=== PATIENT | female | born 1975 | race Two or more races ===

== ENCOUNTER 2017-05-02 18:55 | Emergency (ER) | payer OTHER ==
[~2017-05-02] VITALS: Ht 160 cm; Wt 77.3 kg
[2017-05-02] MEDS ORDERED: CELE40TA PO (19:17)
[2017-05-02] MEDS ORDERED: GABA-283 PO (19:17)
[2017-05-02] MEDS ORDERED: HYDROmorphone HCL 1 MG/ML SYRINGE (J1170) IM ONE (20:30)
[2017-05-02] MEDS ORDERED: TRAM50TA2 PO (20:31)
[2017-05-02 21:07] VITALS: BP 133/78
== END 2017-05-02 21:08 | disposition home or self-care (01) ==
LOC: M ED 18:55
DX: M62.830 Muscle spasm of back (principal); F41.9 Anxiety disorder, unspecified; G89.29 Other chronic pain; M54.2 Cervicalgia; M25.519 Pain in unspecified shoulder; F17.210 Nicotine dependence, cigarettes, uncomplicated; Z79.899 Other long term (current) drug therapy
CPT/HCPCS: 96372; 99282; J1170

== ENCOUNTER → 2017-05-25 | Outpatient (CLI) | payer OTHER ==
[~2017-05-25] MED LIST: CELE40TA PO; GABA-283 PO; TRAM50TA2 PO
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
== END | disposition home or self-care (01) ==
LOC: M PAIN 14:15
PROVIDERS: ATTEND Nurse Practitioner Family
DX: G89.29 Other chronic pain (principal); M12.88 Other specific arthropathies, not elsewhere classified, other specified site; M79.1 Myalgia; M54.2 Cervicalgia; F41.9 Anxiety disorder, unspecified; Z79.899 Other long term (current) drug therapy; Z91.040 Latex allergy status; F17.210 Nicotine dependence, cigarettes, uncomplicated

== ENCOUNTER → 2017-06-09 | Outpatient (CLI) | payer OTHER ==
--- NOTE | 2017-06-09 19:32 | REP ---
MR CERVICAL SPINE WITHOUT CONTRAST: HISTORY: Neck pain. A disc bulge is present at the C3-4 level. There is mild effacement of the thecal sac without spinal cord compression. Uncinate process hypertrophy is present on the right. This produces mild narrowing of the right C3 neural foramen. The left C3 neural foramina is parent. A disc bulge is present at the C4-5 level. There is moderate effacement of the thecal sac without spinal cord compression. Uncinate process hypertrophy is present on the right. This produces moderate narrowing of the right C4 neural foramen. The left C4 neural foramina is patent. A disc bulge with associated osteophyte formation is present at the C5-6 level. There is moderate effacement of the thecal sac without spinal cord compression. Bilateral uncinate process hypertrophy is present. This produces moderate and mild narrowing of the right and left C5 neural foramina respectively. A disc bulge and small central disc protrusion are present at the C6-7 level. There is minimal effacement of the thecal sac without spinal cord compression. The C6 neural foramina are patent. There is no other disc bulge or herniation. The remaining neural foramina are patent. The spinal cord is normal in signal intensity. The C4-5 and C5-6 intervertebral discs are decreased in height consistent with disc degeneration. Normal signal intensity is present in the cervical vertebral bodies. There is loss of the normal lordotic curve. IMPRESSION: There is cervical spondylosis at the C3-4 through C6-7 levels without spinal cord compression. Signed by Paolo Morataya MD 06/09/2017 07:41 P
== END ==
LOC: M RAD 17:29
PROVIDERS: ATTEND Nurse Practitioner Family
DX: M12.88 Other specific arthropathies, not elsewhere classified, other specified site (principal)

== ENCOUNTER → 2017-06-29 | Outpatient (CLI) | payer OTHER ==
--- NOTE | 2017-07-15 00:55 | ECWPNPC ---
PATIENT NAME: CAROLEE DAWN : 1975 GENDER: FEMALE VISIT DATE: 06/29/2017 DISCHARGE DATE: 06/29/17 1624 VISIT LOCKED DATE TIME: PHYSICIAN: LISSET DIAZ RESOURCE: LISEST DIAZ REASON FOR APPOINTMENT 1. NECK PAIN HISTORY OF PRESENT ILLNESS HISTORY OF PRESENT ILLNESS: PAIN THE PATIENT DESCRIBES THE PAIN... 42 YEAR OLD FEMALE PATIENT WITH HISTORY OF CHRONIC NECK PAIN. PATIENT DESCRIBES THE PAIN ACHING, BURNING, SHARP, STABBING, TENDER, THROBBING, SORE, SHOOTING AND HAVING IT ALL THE TIME WITH A PAIN SCORE OF 7/10. PATIENT REPORTS HURTING HER NECK 4-5 YEARS AGO AND HAD RECEIVED A RADIOFREQUENCY IN DECEMBER OF 2015 AND WAS DOING WELL UNTIL SHE MOVED IN MARCH 2017 AND THE PAIN RETURNED. AT THIS TIME THE PATIENT IS USING MELOXICAM TO AID IN PAIN RELIEF FROM THE MUSCLE SPASMS. PATIENT STATES THE PAIN IS THE WORST WHEN SHE SITS IN ONE POSITION FOR TOO LONG. PATIENT DENIES UNEXPLAINABLE WEIGHT LOSS, FEVER, CHILLS, NEW CHANGES ON HER URINARY OR BOWEL CONTROL. FALL RISK SCREENING: SCREENING :NO FALLS IN THE PAST YEAR CURRENT MEDICATIONS TAKING CELEXA 40 MG TABLET 0.5 TABLET ORALLY ONCE A DAY TAKING MELOXICAM 15 MG TABLET 1 TABLET ORALLY ONCE A DAY NOT-TAKING CYCLOBENZAPRINE HCL 5 MG TABLET 1 TABLET NEEDED ORALLY THREE TIMES A DAY MEDICATION LIST REVIEWED AND RECONCILED WITH THE PATIENT PAST MEDICAL HISTORY CERVICALAGIA ANXIETY ALLERGIES LATEX: RASH: ALLERGY REVIEW OF SYSTEMS REVIEWED BY: PROVIDER: LISSET DIAZ MD . CONSTITUTIONAL: ANY CHANGE IN YOUR MEDICAL CONDITION? NO . CHILLS NO . FEVER NO . INFECTION: DO YOU HAVE NEW INFECTIONS? NO . DO YOU HAVE HISTORY OF MRSA? NO . MUSCULOSKELETAL: ANY NEW PATTERNS OF PAIN OR NUMBNESS? NO . GASTROENTEROLOGY: ANY NEW CHANGE IN BOWEL CONTROL? NO . GENITOURINARY: ANY NEW CHANGE IN BLADDER CONTROL? NO . IS THERE A CHANCE YOU COULD BE ? NO . HEMATOLOGY/LYMPH: DO YOU TAKE ANY BLOOD THINNERS? (FOR EXAMPLE- COUMADIN, PLAVIX, AGGRENOX, PLATEL, PRADAXA, OR XARELTO) NO . WHEN WAS YOUR LAST DOSE? DATE: TIME: . NEUROLOGY: HAVE YOU FALLEN IN THE PAST 6 MONTHS? NO . ANY NEW EXTREMITY NUMBNESS OR WEAKNESS? NO . CARDIOLOGY: DO YOU HAVE A PACEMAKER OR DEFIBRILLATOR? NO . RESPIRATORY: HAVE YOU BEEN SICK IN THE PAST WEEK? NO . FEVER NO . FLU LIKE SYMPTOMS? NO . COUGH NO . INTEGUMENTARY: DO YOU HAVE ANY RASHES OR OPEN SORES? NO . ALLERGIC/IMMUNO: ARE YOU ALLERGIC TO SHELLFISH OR IV DYE? NO . ANY NEW ALLERGIES? NO . PSYCHIATRIC: DO YOU HAVE THOUGHTS OF HURTING YOURSELF OR SOMEONE ELSE? NO . ARE YOU ABUSED, NEGLECTED, OR IN AN UNSAFE ENVIRONMENT? NO . ENDOCRINOLOGY: ARE YOU DIABETIC? NO . OTHER: DO YOU NEED ANY PRESCRIPTIONS? NO . IF YES, PLEASE LIST: ____ . ANY NEW PROBLEMS WITH YOUR MEDICATIONS? NO . WHEN DID YOU LAST EAT? ____ . WHEN DID YOU LAST DRINK? ____ . WHAT DID YOU LAST DRINK? ____ . NAME OF PERSON DRIVING YOU HOME? ____ . DO YOU HAVE ANY OTHER QUESTIONS OR CONCERNS YES PT WOULD LIKE TO DISCUSS POSSIBLITY OF INJECTIONS, SHE HAS HAD THEM BEFORE WITH [facility], THE LAST ONE BEING A CERVICAL RADIOFREQUENCY DONE IN [place] 12/2015. SHE WOULD ALSO LIKE TO DISCUSS STARTING GABAPENTIN AND MOBIC FOR PAIN CONTROL. . EXAMINATION : PATIENT IS ALERT O X 3 AND COOPERATIVE. TENDERNESS IN THE RIGHT CERVICAL AREA. BANDS OF TISSUE, RESTRICTION OF MOVEMENT, AND PRESENCE OF TRIGGER POINTS IN THE CERVICAL AREA. MRI OF THE CERVICAL SPINE DONE ON 01/16/17 SHOWS DEGENERATIVE DISC DISEASE AND SPONDYLOSIS AT C4-C5. ASSESSMENTS MYALGIA - M79.1 (PRIMARY) NECK PAIN - M54.2 SPONDYLOSIS OF LUMBAR REGION WITHOUT MYELOPATHY OR RADICULOPATHY - M47.816 TREATMENT MYALGIA NOTES: WE DISCUSSED SEVERAL ISSUES WITH MRS. DAWN'S PAIN MANAGEMENT CASE. AT THIS TIME THE PATIENT WILL CONTINUE TO USE MELOXICAM FOR THE MUSCLE SPASMS. I WOULD LIEK THE PATIENT TO START GABAPENTIN TO AID IN RELIEF FROM THE NEUROPATHIC PAIN. PATIENT WAS ADVISED TO STOP THE MEDICATION IF SHE HAS ANY ADVERSE SIDE EFFECTS. WE DISCUSSED SEVERAL INJECTIONS THAT MAY AID THE PATIENT IN PAIN RELIEF. AT THIS TIME THE PATIENT WOULD LIKE TO PROCEED WITH THE LEAST INVASIVE INJECTION BEING THE TRIGGER POINT INJECTION. DUE TO THE BANDS OF TISSUE I WOULD LIKE TO PROCEED WITH TRIGGER POINT INJECTIONS. WE DISCUSSED THE RISKS, BENEFITS, AND ALTNERATIVES OF THE INJECTION AND THE PATIENT WOULD LIKE TO PROCEED AT THIS. INSTRUCTIONS WERE GIVEN, QUESTIONS WERE ANSWERED, PATIENT REPORTS UNDERSTANDING AND AGREES WITH THE PLAN. I, SALVADOR NEAL, DOCUMENTED THE ABOVE INFORMATION ACTING A SCRIBE FOR DR. DIAZ. I HAVE REVIEWED THE ABOVE DOCUMENT, WRITTEN BY SALVADOR JUSTIN AND I VERIFY THAT IT IS ACCURATE. OTHERS REFILL MELOXICAM TABLET, 15 MG, 1 TABLET WITH FOOD, ORALLY PRN FOR PAIN, ONCE A DAY, 30 DAY(S), 30 TABLET, REFILLS 1 START GABAPENTIN TABLET, 800 MG, 1 TABLET, ORALLY FOR PAIN, BID FOR PAIN MDD2, 30 DAY(S), 60, REFILLS 1 PROCEDURE CODES FA211 ESTABILISHED PATIENT [facility] FACILITY CHARGE G8427 DOC MEDS VERIFIED W/PT OR RE G8730 PAIN ASSESS POS TOOL F/U PLAN DOC DISPOSITION & COMMUNICATION FOLLOW UP TPI AFTER APPROVAL ELECTRONICALLY SIGNED BY LISSET DIAZ MD ON 07/14/2017 AT 02:25 PM EST DISCLAIMER : THIS IS A VISIT SUMMARY EXTRACTED FROM THE [employer] CHART. IT IS NOT A COPY OF THE [employer] PROGRESS NOTE. MARTINE
== END ==
LOC: M PAIN 15:30
PROVIDERS: ATTEND Anesthesiology
DX: M79.1 Myalgia (principal); M54.2 Cervicalgia; M47.816 Spondylosis without myelopathy or radiculopathy, lumbar region; G89.29 Other chronic pain; Z79.899 Other long term (current) drug therapy; Z91.040 Latex allergy status

== ENCOUNTER → 2017-07-14 | Outpatient (CLI) | payer OTHER ==
--- NOTE | 2017-07-29 01:32 | ECWPNPC ---
PATIENT NAME: CAROLEE DAWN : 1975 GENDER: FEMALE VISIT DATE: 07/14/2017 DISCHARGE DATE: 07/14/17 1415 VISIT LOCKED DATE TIME: PHYSICIAN: SUZAN DRISCOLL RESOURCE: SUZAN DRISCOLL REASON FOR APPOINTMENT 1. NECK HISTORY OF PRESENT ILLNESS HISTORY OF PRESENT ILLNESS: PAIN THE PATIENT DESCRIBES THE PAIN... FALL RISK SCREENING: SCREENING :NO FALLS IN THE PAST YEAR TODAY'S VISIT: NOTES: REPORT NINFA IS NOT WORKING BEFORE. HAS BEEN ON MED X > 4 YEARS WITH AT CURRENT DOSE AT OVER 1 YEAR. PAIN IS CENTERED AT BASE OF NECK WITH RADIATES OVER HEAD AND HAS ASSOC TURNER. . HAS BEEN HAVING DISRUPTED SLEEP. . CURRENT MEDICATIONS TAKING CELEXA 40 MG TABLET 0.5 TABLET ORALLY ONCE A DAY TAKING MELOXICAM 15 MG TABLET 1 TABLET WITH FOOD ORALLY PRN FOR PAIN ONCE A DAY TAKING GABAPENTIN 800 MG TABLET 1 TABLET ORALLY FOR PAIN BID FOR PAIN MDD2 NOT-TAKING CYCLOBENZAPRINE HCL 5 MG TABLET 1 TABLET NEEDED ORALLY THREE TIMES A DAY MEDICATION LIST REVIEWED AND RECONCILED WITH THE PATIENT PAST MEDICAL HISTORY CERVICALAGIA ANXIETY ALLERGIES LATEX: RASH: ALLERGY SURGICAL HISTORY X 2 1996, 2009 SOCIAL HISTORY GENERAL: TOBACCO USE ARE YOU A:CURRENT SMOKER 1 PPD X 20 YEARS ARE YOU INTERESTED IN QUITTING?THINKING ABOUT QUITTING PREVIOUS QUIT ATTEMPTS?YES, WITHIN THE LAST 6 MONTHS. COUNSELED THE PATIENT ON SMOKING CESSATION, EDUCATION [id number]/25/2017 PATIENT COUNSELED ON THE DANGERS OF TOBACCO USE AND URGED TO QUIT:05/25/2017 PLANNING TO QUIT SMOKING SOON/ WILL BE TAKING CHANTEX TO DO THIS RECREATIONAL DRUG USE DRUG USE?NO CAFFEINE CAFFEINE USE?NO 6 CUPS COFFEE/DAY DIET: REGULAR. MARITAL STATUS: . OTHERS AT HOME: SPOUSE, CHILD. SIKH [id number] PRESYBETERIAN LANGUAGE LANGUAGES SPOKEN:BENGALI LEARNING BARRIERS / SPECIAL NEEDS BARRIERS TO LEARNING?NO PAIN CLINIC PFS, CLERGY, PUBLIC HEALTH REFERRALS HAS THE PATIENT BEEN EDUCATED REGARDING HIS/HER PLAN OF CARE?YES HAS THE PATIENT BEEN EDUCATED REGARDING PAIN, THE RISK FOR PAIN, THE IMPORTANCE OF EFFECTIVE PAIN MANAGEMENT, AND THE PAIN ASSESSMENT PROCESS?YES ADVANCE DIRECTIVES HEALTH CARE PROXY?NO WOULD YOU LIKE MORE INFORMATION?NO DO YOU HAVE A DNR?NO WOULD YOU LIKE MORE INFORMATION?NO LIVING WILL?NO WOULD YOU LIKE MORE INFORMATION?NO POWER OF FAMILY AND CONSUMER SCIENCES PROFESSOR?NO WOULD YOU LIKE MORE INFORMATION?NO TRAVEL OUTSIDE US: NONE RECENT. REVIEW OF SYSTEMS REVIEWED BY: PROVIDER: . CONSTITUTIONAL: ANY CHANGE IN YOUR MEDICAL CONDITION? GABAPENTIN TAKES SO LONG TO START WORKING WONDERS IF SHE COULD SWITCH TO LYRICA . CHILLS NO . FEVER NO . INFECTION: DO YOU HAVE NEW INFECTIONS? NO . DO YOU HAVE HISTORY OF MRSA? NO . MUSCULOSKELETAL: ANY NEW PATTERNS OF PAIN OR NUMBNESS? NO . GASTROENTEROLOGY: ANY NEW CHANGE IN BOWEL CONTROL? NO . GENITOURINARY: ANY NEW CHANGE IN BLADDER CONTROL? NO . IS THERE A CHANCE YOU COULD BE ? NO . HEMATOLOGY/LYMPH: DO YOU TAKE ANY BLOOD THINNERS? (FOR EXAMPLE- COUMADIN, PLAVIX, AGGRENOX, PLATEL, PRADAXA, OR XARELTO) NO . WHEN WAS YOUR LAST DOSE? DATE: TIME: . NEUROLOGY: HAVE YOU FALLEN IN THE PAST 6 MONTHS? NO . ANY NEW EXTREMITY NUMBNESS OR WEAKNESS? NO . CARDIOLOGY: DO YOU HAVE A PACEMAKER OR DEFIBRILLATOR? NO . RESPIRATORY: HAVE YOU BEEN SICK IN THE PAST WEEK? NO . FEVER NO . FLU LIKE SYMPTOMS? NO . COUGH NO . INTEGUMENTARY: DO YOU HAVE ANY RASHES OR OPEN SORES? NO . ALLERGIC/IMMUNO: ARE YOU ALLERGIC TO SHELLFISH OR IV DYE? NO . ANY NEW ALLERGIES? NO . PSYCHIATRIC: DO YOU HAVE THOUGHTS OF HURTING YOURSELF OR SOMEONE ELSE? NO . ARE YOU ABUSED, NEGLECTED, OR IN AN UNSAFE ENVIRONMENT? NO . ENDOCRINOLOGY: ARE YOU DIABETIC? NO . OTHER: DO YOU NEED ANY PRESCRIPTIONS? YES . IF YES, PLEASE LIST: COULD SHE HAVE LYRICA INSTEAD OF GABAPENTIN . ANY NEW PROBLEMS WITH YOUR MEDICATIONS? NO . WHEN DID YOU LAST EAT? ____ . WHEN DID YOU LAST DRINK? ____ . WHAT DID YOU LAST DRINK? ____ . NAME OF PERSON DRIVING YOU HOME? ____ . DO YOU HAVE ANY OTHER QUESTIONS OR CONCERNS NO . VITAL SIGNS WT 170.0 LBS, HT 63 IN, BMI 30.11 INDEX, BP 118/64 MM HG, HR 83 /MIN, RR 16 /MIN, TEMP 97.9 F, OXYGEN SAT % 98%, NA INITIALS TL 1311, REVIEWED BY: NL. ASSESSMENTS MYALGIA - M79.1 (PRIMARY) NECK PAIN - M54.2 SPONDYLOSIS OF LUMBAR REGION WITHOUT MYELOPATHY OR RADICULOPATHY - M47.816 TREATMENT MYALGIA START LYRICA CAPSULE, 100 MG, 1 CAPSULE, ORALLY, TWICE A DAY MDD=2, 30 DAY(S), 60, REFILLS 1 START TRAMADOL HCL TABLET, 50 MG, 1 TABLET NEEDED, ORALLY, Q 6-8 HRS PRN PAIN MDD=3, 30 DAY(S), 75, REFILLS 0 NOTES: WHEN LYRICA IS APPROVED DECREASE GABAPENTIN TO 1/2 TABLET TWICE A DAY FOR 3 DAYS AND THEN STOP. PROCEDURE CODES FA211 ESTABILISHED PATIENT [facility] CHARGE DISPOSITION & COMMUNICATION FOLLOW UP KEEP SCHEDULED APPOINT FOR INJECTION/FOLLOWUP AFTER (REASON: NECK PAIN) ELECTRONICALLY SIGNED BY DANIELLE CONNOR ON 07/28/2017 AT 08:51 AM EST DISCLAIMER : THIS IS A VISIT SUMMARY EXTRACTED FROM THE [employer] CHART. IT IS NOT A COPY OF THE [employer] PROGRESS NOTE. MTDDelmi
== END | disposition home or self-care (01) ==
LOC: M PAIN 14:45
PROVIDERS: ATTEND Nurse Practitioner Family
DX: G89.29 Other chronic pain (principal); M79.1 Myalgia; M54.2 Cervicalgia; M47.816 Spondylosis without myelopathy or radiculopathy, lumbar region; Z79.899 Other long term (current) drug therapy; Z91.040 Latex allergy status; F17.210 Nicotine dependence, cigarettes, uncomplicated

== ENCOUNTER → 2017-09-01 | Outpatient (CLI) | payer OTHER ==
[~2017-09-01] MED LIST changes: +BUPIVACAINE HCL 0.25% 10 ML VIAL As Ordered; +BUPIVACAINE HCL 0.25% 30 ML VIAL As Ordered; -CELE40TA PO; -GABA-283 PO; -TRAM50TA2 PO; +TRIAMCINOLONE ACETONIDE SUSP 40 MG/ML VIAL (J3301) As Ordered; +diazePAM 5 MG TAB As Ordered; +oxyCODONE 5MG TAB As Ordered
== END ==
LOC: M PAIN 15:00
DX: G89.29 Other chronic pain (principal); M54.2 Cervicalgia; M25.511 Pain in right shoulder; M79.1 Myalgia; F41.9 Anxiety disorder, unspecified; F17.200 Nicotine dependence, unspecified, uncomplicated; Z91.040 Latex allergy status; Z79.899 Other long term (current) drug therapy
CPT/HCPCS: J3301

== ENCOUNTER → 2017-09-17 | Outpatient (CLI) | payer OTHER | LOC: M PAIN 14:30 | DX: G89.29 Other chronic pain (principal); M79.1 Myalgia; M54.2 Cervicalgia; F41.9 Anxiety disorder, unspecified; F17.210 Nicotine dependence, cigarettes, uncomplicated; Z79.899 Other long term (current) drug therapy; Z91.040 Latex allergy status | CPT/HCPCS: G0463 ==

== ENCOUNTER 2018-04-29 16:25 | Emergency (ER) | payer OTHER ==
[2018-04-29] MEDS: LORazepam 0.5 MG TAB PO (17:33)
== END 2018-04-29 18:17 | disposition home or self-care (01) ==
LOC: M ED 16:25
DX: F41.1 Generalized anxiety disorder (principal); F17.210 Nicotine dependence, cigarettes, uncomplicated
CPT/HCPCS: 99284

== ENCOUNTER 2019-05-21 14:56 | Emergency (ER) | payer OTHER ==
[~2019-05-21] VITALS: Ht 160 cm; Wt 63.6 kg
[~2019-05-21 14:56] MED LIST changes: +ATIV1TAB10 PO; -BUPIVACAINE HCL 0.25% 10 ML VIAL As Ordered; -BUPIVACAINE HCL 0.25% 30 ML VIAL As Ordered; +CELE40TA PO; +GABA-845 PO; +TRAM50TA2 PO; -TRIAMCINOLONE ACETONIDE SUSP 40 MG/ML VIAL (J3301) As Ordered; -diazePAM 5 MG TAB As Ordered; -oxyCODONE 5MG TAB As Ordered
[2019-05-21] MEDS ORDERED: CELE10TA PO (15:17)
[2019-05-21 15:46] LABS: BASO # 0.1 10^3/uL (0.0-0.2); BASO % 0.8 % (0.0-1.0); EOS # 0.1 10^3/uL (0.0-0.5); EOS % 0.8 % (0.0-3.0); HEMATOCRIT 44.8 % (36.0-47.0); LYMPH # 1.5 10^3/uL (1.5-5.0); LYMPH % 12.4 % (24.0-44.0); MEAN CORPUSCULAR HEMOGLOBIN 33.6 pg (27.0-33.0); MEAN CORPUSCULAR HGB CONC 33.5 g/dl (32.0-36.5); MEAN CORPUSCULAR VOLUME 100.4 fl (80.0-96.0); MONO # 0.8 10^3/uL (0.0-0.8); MONO % 7.1 % (0.0-5.0); NEUTROPHILS # 9.3 10^3/uL (1.5-8.5); NEUTROPHILS % 78.6 % (36.0-66.0); PLATELET COUNT, AUTOMATED 289 10^3/uL (150-450); RED BLOOD COUNT 4.46 10^6/uL (4.00-5.40); WHITE BLOOD COUNT 11.8 10^3/uL (4.0-10.0)
[2019-05-21 15:56] LABS: INR 1.04; PROTHROMBIN TIME 13.3 SECONDS (11.8-14.0)
[2019-05-21 15:57] LABS: PARTIAL THROMBOPLASTIN TIME 28.2 SECONDS (25.0-38.4)
[2019-05-21 15:59] LABS: D-DIMER QUANT 506.04 ng/ml (<500)
--- NOTE | 2019-05-21 15:59 | REP ---
Portable chest, single AP view with the patient sitting, 03:36 p.m.: There are no comparisons. The lung wilkins are clear. The cardiac size is normal. The peggy, mediastinum, and skeletal structures are unremarkable. Impression: Negative portable chest. Electronically Signed by Joseph Landin MD 05/21/2019 03:51 P
[2019-05-21 16:20] LABS: ALBUMIN 3.6 GM/DL (3.2-5.2); ALT/SGPT 18 U/L (12-78); BILIRUBIN,DIRECT < 0.1 MG/DL (0.0-0.2); BILIRUBIN,TOTAL 0.4 MG/DL (0.2-1.0); CK-MB VALUE MASS < 1.0 NG/ML (<3.6); CPK CREATINE PHOSPHOKINASE 89 U/L (26-192); LIPASE 78 U/L (73-393); MB/CK RELATIVE INDEX 1.12 (< OR =4); TOTAL PROTEIN 7.2 GM/DL (6.4-8.2); TROPONIN I < 0.02 NG/ML (< 0.10)
[2019-05-21] MEDS ORDERED: ISOVUE-370 76% 100ML VIAL (Q9967) As Ordered ONE (16:47)
--- NOTE | 2019-05-21 17:35 | REP ---
CT of the chest with IV contrast, CT pulmonary angiography protocol: Comparison is the portable plain film study performed earlier today. There are no emboli in the pulmonary trunk or central pulmonary arteries. There are no emboli in the pulmonary lobe or segment branches. There are no infiltrates. There are no pleural effusions. There are no masses or nodules. There is no mediastinal, hilar or axillary lymphadenopathy. Thoracic aorta is unremarkable. Cardiac size is normal. There is no pericardial effusion. The visualized upper abdominal contents are unremarkable. Impression: There are no pulmonary emboli. Otherwise, negative CT study of the chest. Electronically Signed by Joseph Landin MD 05/21/2019 05:26 P
[2019-05-21 18:15] VITALS: BP 122/64
--- NOTE | 2019-05-22 13:27 | ECGEPIP ---
[facility] - ED Test Date: 2019-05-21 Pat Name: CAROLEE DAWN Department: Room: - Gender: Female Oracle Developer: [place] : 1975 Requested By: LEO Giraldo Order Number: [id number] Reading MD: eJsenia Murillo Measurements Intervals Allison Rate: 77 P: 72 NH: 124 QRS: 63 QRSD: 80 T: 7 QT: 334 QTc: 379 Interpretive Statements SINUS RHYTHM WITH SINUS ARRHYTHMIA POSSIBLE LEFT ATRIAL ENLARGEMENT NONSPECIFIC T-WAVE ABNORMALITY NO PRIOR Electronically Signed on 05-22-2019 13:26:44 EDT by Jesenia Murillo
== END 2019-05-21 18:32 | disposition home or self-care (01) ==
LOC: M ED 14:56
DX: R07.89 Other chest pain (principal); R11.0 Nausea; F41.9 Anxiety disorder, unspecified; F32.9 Major depressive disorder, single episode, unspecified; F17.200 Nicotine dependence, unspecified, uncomplicated; Z91.040 Latex allergy status; Z79.899 Other long term (current) drug therapy
CPT/HCPCS: 71045; 71275; 80047; 80076; 82550; 82553; 83690; 84443; 84484; 85025; 85379; 85610; 85730; 86140; 93005; 93041; 94760; 99285; Q9967

== ENCOUNTER 2019-07-24 14:24 | Emergency (ER) | payer OTHER ==
[~2019-07-24] VITALS: Ht 160 cm; Wt 69.2 kg
[~2019-07-24 14:24] MED LIST changes: +CELE10TA PO
[2019-07-24 14:25] VITALS: BP 127/67
[2019-07-24] MEDS ORDERED: HYDR-4570 PO (16:09)
[2019-07-24] MEDS ORDERED: QUET1TAB7 PO (16:09)
== END 2019-07-24 17:10 | disposition left against medical advice (07) ==
LOC: M ED 14:24
DX: Z53.21 Procedure and treatment not carried out due to patient leaving prior to being seen by health care provider (principal)

== ENCOUNTER → 2020-01-13 | Outpatient (CLI) | payer OTHER ==
[~2020-01-13] MED LIST changes: +HYDR-4570 PO; +QUET1TAB7 PO
== END ==
LOC: M OUTALCOH 07:50
PROVIDERS: ATTEND Psychiatry & Neurology Addiction Medicine
DX: F10.20 Alcohol dependence, uncomplicated (principal)

== ENCOUNTER → 2020-02-28 | Outpatient (RCR) | payer OTHER | LOC: M OUTALCOH 02-02 16:00 | PROVIDERS: ATTEND Psychiatry & Neurology Addiction Medicine | DX: F10.20 Alcohol dependence, uncomplicated (principal); Z72.0 Tobacco use ==

== ENCOUNTER → 2020-03-14 | Outpatient (CLI) | payer OTHER | LOC: M OUTALCOH 07:58 | PROVIDERS: ATTEND Psychiatry & Neurology Addiction Medicine | DX: Z13.39 Encounter for screening examination for other mental health and behavioral disorders (principal); F10.20 Alcohol dependence, uncomplicated; F17.200 Nicotine dependence, unspecified, uncomplicated ==

== ENCOUNTER → 2020-04-30 | Outpatient (RCR) | payer OTHER | LOC: M OUTALCOH 04-04 11:00 | PROVIDERS: ATTEND Psychiatry & Neurology Addiction Medicine | DX: F10.20 Alcohol dependence, uncomplicated (principal); F17.200 Nicotine dependence, unspecified, uncomplicated ==

== ENCOUNTER 2020-08-03 13:49 | Emergency (ER) | payer MEDICARE, OTHER ==
[~2020-08-03] VITALS: Ht 160 cm; Wt 64.7 kg
[2020-08-03] MEDS ORDERED: IBUP-1114 PO (13:59)
[2020-08-03 15:40] LABS: URINE PREG TEST NEGATIVE (NEGATIVE)
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
[2020-08-03] MEDS ORDERED: cefTRIAXone SOD 250MG VIAL (J0696 PER 250MG) IM ONE (17:00)
[2020-08-03] MEDS ORDERED: AZITHROMYCIN 250MG TABLET PO ONE (17:00)
[2020-08-03] MEDS ORDERED: LIDOCAINE 1% SDV 5ML VIAL DILUENT ONE (17:00)
[2020-08-03] MEDS ORDERED: DOXY100C37 PO (17:02)
[2020-08-03 17:11] LABS: CHLAMYDIA DNA AMPLIFICATION NEGATIVE (NEGATIVE); GC DNA AMPLIFICATION NEGATIVE (NEGATIVE)
[2020-08-03 17:34] VITALS: BP 104/59
== END 2020-08-03 17:45 | disposition home or self-care (01) ==
LOC: M ED 13:49
DX: Z11.3 Encounter for screening for infections with a predominantly sexual mode of transmission (principal); R10.2 Pelvic and perineal pain; M25.572 Pain in left ankle and joints of left foot; J02.9 Acute pharyngitis, unspecified; R09.89 Other specified symptoms and signs involving the circulatory and respiratory systems; F17.200 Nicotine dependence, unspecified, uncomplicated; Z91.040 Latex allergy status
CPT/HCPCS: 73610; 81001; 84703; 87661; 87880; 96372; 99284; J0696

== ENCOUNTER 2020-12-16 12:12 | Emergency (ER) | payer MEDICARE, OTHER ==
[~2020-12-16] VITALS: Ht 160 cm; Wt 63.6 kg
[~2020-12-16 12:12] MED LIST changes: +DOXY100C37 PO; +IBUP-1114 PO; -QUET1TAB7 PO; +QUET25TA3 PO
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
[2020-12-16] MEDS ORDERED: ACETAMINOPHEN 500 MG TAB PO ONE (15:10)
[2020-12-16] MEDS ORDERED: BOOSTRIX/ADACEL VACCINE (DIPHTH/PERTUSS/ACELL/TETANUS) 0.5ML SYR IM ONE (15:10)
[2020-12-16 15:40] LABS: BASO # 0.1 10^3/uL (0.0-0.2); BASO % 0.9 % (0.0-1.0); EOS # 0.2 10^3/uL (0.0-0.5); EOS % 2.1 % (0.0-3.0); HEMOGLOBIN 14.1 g/dl (12.0-15.5); LYMPH # 2.2 10^3/uL (1.5-5.0); LYMPH % 26.2 % (24.0-44.0); MEAN CORPUSCULAR HEMOGLOBIN 33.1 pg (27.0-33.0); MEAN CORPUSCULAR HGB CONC 33.6 g/dl (32.0-36.5); MEAN CORPUSCULAR VOLUME 98.6 fl (80.0-96.0); MONO # 0.5 10^3/uL (0.0-0.8); MONO % 6.2 % (2.0-8.0); NEUTROPHILS # 5.3 10^3/uL (1.5-8.5); NEUTROPHILS % 64.2 % (36.0-66.0); PLATELET COUNT, AUTOMATED 253 10^3/uL (150-450); RED BLOOD COUNT 4.26 10^6/uL (4.00-5.40); WHITE BLOOD COUNT 8.2 10^3/uL (4.0-10.0)
[2020-12-16] MEDS ORDERED: ISOVUE-370 76% 100ML VIAL As Ordered ONE (15:42)
[2020-12-16 15:51] LABS: INR 0.9; PROTHROMBIN TIME 12.3 SECONDS (12.5-14.3)
[2020-12-16 15:52] LABS: PARTIAL THROMBOPLASTIN TIME 27.3 SECONDS (24.2-38.5)
[2020-12-16 16:01] LABS: ALBUMIN 3.5 GM/DL (3.2-5.2); ALT/SGPT 38 U/L (12-78); BILIRUBIN,DIRECT < 0.1 MG/DL (0.0-0.2); BILIRUBIN,TOTAL 0.2 MG/DL (0.2-1.0); LIPASE 119 U/L (73-393)
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
[2020-12-16 16:41] VITALS: BP 147/75
== END 2020-12-16 16:46 | disposition home or self-care (01) ==
LOC: M ED 12:12
DX: S43.402A Unspecified sprain of left shoulder joint, initial encounter (principal); S46.912A Strain of unspecified muscle, fascia and tendon at shoulder and upper arm level, left arm, initial encounter; S20.411A Abrasion of right back wall of thorax, initial encounter; S20.412A Abrasion of left back wall of thorax, initial encounter; S40.811A Abrasion of right upper arm, initial encounter; S40.812A Abrasion of left upper arm, initial encounter; Y04.8XXA Assault by other bodily force, initial encounter; Y07.03 Male partner, perpetrator of maltreatment and neglect; Y92.018 Other place in single-family (private) house as the place of occurrence of the external cause; D25.9 Leiomyoma of uterus, unspecified; F17.210 Nicotine dependence, cigarettes, uncomplicated
CPT/HCPCS: 73030; 74177; 80047; 80076; 83690; 84702; 85025; 85610; 85730; 90471; 90715; 99284; Q9967